=== PATIENT | male | born 1975 | race Caucasian/White ===

== ENCOUNTER 2021-10-22 13:11 | Emergency (ER) | payer OTHER, SELFPAY ==
[2021-10-22 13:13] VITALS: BP 119/92; PULSE 113; RESP 18; TEMP 36.3; O2SAT 97
[2021-10-22 13:48] LABS: Basophils Absolute Auto 0.1 K/mm3 (0.0-0.1); Basophils Percent Auto 0.6 % (0.2-1.2); Eosinophils Percent Auto 0.2 % (0-4.4); Hematocrit 42.2 % (42.0-52.0); Immature Granulocyte Absolute 0.07 K/mm3 (0.00-0.031); Immature Granulocyte Percent A 0.7 % (0-0.5); Lymphocytes Absolute Auto 1.51 K/mm3 (0.9-3.2); Mean Corpuscular HGB Conc 33.2 g/dl (32-36); Mean Corpuscular Hemoglobin 31.5 pg (26-34); Mean Corpuscular Volume 94.8 fl (80-100); Mean Platelet Volume 9.1 fl (7.4-10.4); Monocytes Absolute Auto 0.9 K/mm3 (0.1-0.6); Monocytes Percent Auto 8.4 % (2.6-8.5); Neutrophils Absolute Auto 7.6 K/mm3 (1.3-6.7); Neutrophils Percent Auto 75.1 % (45.5-73.1); Platelet Count Result 183 k/mm3 (150-375); Red Blood Count 4.45 M/mm3 (4.6-6.20); Red Cell Distribution Width 12.6 % (11.5-14.5); White Blood Count 10.1 K/mm3 (4.5-10.0)
[2021-10-22 13:59] LABS: Alanine Aminotransferase 36 U/L (4-50); Albumin Level 4.7 g/dL (3.5-5.1); Alkaline Phosphatase 80 U/L (38-126); Anion Gap 12 mmol/L (8-16); Aspartate Amino Transferase 44 U/L (17-59); Bilirubin,Total 0.8 mg/dL (0.2-1.3); Blood Urea Nitrogen 22 mg/dL (9-20); Carbon Dioxide 21 mmol/L (22-30); Chloride 103 mmol/L (98-107); Estimated CRCL calculation 94 ml/min; Estimated Glomerular Filt Rate > 60; Glucose 112 mg/dL (65-110); Lipase 111 U/L (23-300); Potassium 3.8 mmol/L (3.4-5.0); Sodium 136 mmol/L (137-145)
[2021-10-22] MEDS: SODIUM CHLORIDE 0.9% IV 1,000 ML 999 ML IV CONT (14:45)
--- NOTE | 2021-10-22 15:04 | ED.NAVMDI ---
HPI - Nausea/Vomiting/Diarrhea General Chief complaint: Nausea/Vomiting/Diarrhea Stated complaint: vomiting Time Seen by Provider: 10/22/21 14:35 Source: patient History of Present Illness HPI Narrative: Patient presents with nausea vomiting diarrhea and abdominal pain. Patient reports he recently returned from a trip from [facility]?n did well in [facility]?n when he returned to the [place] he developed nausea vomiting and diarrhea. Denies any blood or bile or melena. His abdominal pain is diffuse crampy constant no radiation no clear aggravating or alleviating factors. Reports subjective chills. He thinks maybe he has food poisoning. Related Data Allergies Allergy/AdvReac Type Severity Reaction Status Date / Time No Known Allergies Allergy Verified 10/04/21 09:05 Review of Systems Review of Systems: CONSTITUTIONAL: Subjective chills EYES: Denies visual changes, redness, or discharge. ENT: Denies rhinorrhea, congestion, sore throat, or otalgia. CARDIOVASCULAR: Denies chest pain, palpitations, or edema. RESPIRATORY: Denies cough or dyspnea. GASTROINTESTINAL: Diffuse abdominal pain with nausea vomiting diarrhea GENITOURINARY: Denies dysuria or hematuria. SKIN: Denies rash or itching. MUSCULOSKELETAL: Denies back pain, joint pain, or myalgia. NEUROLOGIC: Denies headache, numbness, dizziness, or weakness. PSYCHIATRIC: Denies anxiety or depression. All systems reviewed & are unremarkable except as noted in HPI and below PMFSH Social History Social History Smoking status: Never smoker Alcohol intake: current Substance use: never Exam Narrative: GENERAL: Well-appearing, well-nourished, and in no acute distress. HEAD: Normocephalic, atraumatic. EYES: PERRLA and EOMI. ENT: Nares clear, no rhinorrhea or epistaxis. Mucous membranes moist. NECK: Supple. No masses. No JVD ABDOMEN: Minimal pain with deep palpation soft, nondistended, normal active bowel sounds. EXTREMITIES: Normal range of motion. No edema. SKIN: Warm, dry, no rash. NEURO: No focal deficits. Alert and oriented x3. PSYCH: Normal mood and affect. Course Reevaluation(s) Reevaluation #1: Patient reports feeling much improved Date: 10/22/21 Time: 16:45 Vital Signs Vital signs: Vital Signs Temperature 36.3 C L 10/22/21 13:13 Pulse Rate 113 H 10/22/21 13:13 Respiratory Rate 18 10/22/21 13:13 Blood Pressure 119/92 H 10/22/21 13:13 Pulse Oximetry 97 10/22/21 13:13 Temperature 36.3 C L 10/22/21 13:13 Pulse Rate 78 10/22/21 16:16 Respiratory Rate 16 10/22/21 16:16 Blood Pressure 122/68 10/22/21 16:16 Pulse Oximetry 99 10/22/21 16:16 MDM - Nausea/Vomiting/Diarrhea MDM Narrative Medical decision making narrative: H&P as above, vs initially with tachycardia improved with fluids, pt looks clinically well, exam with nonacute abdomen, labs clinically unremarkable, additional labs/img considered, symptomatic relief available as needed, on reevaluation pt continues to looks clinically well. Suspect traveler's diarrhea versus foodborne illness versus viral process, dns severe sepsis, severe dehydration, appendicitis, perforation, bowel obstruction. plan to tx/monitor as op w/ pcm f/u findings/plan discussed with pt, pt agree/comfortable with plan, return precautions given Lab Data Result diagrams: 10/22/21 13:41 10/22/21 13:41 Labs: Lab Results 10/22/21 10/22/21 10/22/21 Range/Units 13:41 13:41 15:36 WBC 10.1 H (4.5-10.0) K/mm3 RBC 4.45 L (4.6-6.20) M/mm3 Hgb 14.0 (14.0-18.0) g/dL Hct 42.2 (42.0-52.0) % MCV 94.8 (80-100) fl MCH 31.5 (26-34) pg MCHC 33.2 (32-36) g/dl RDW 12.6 (11.5-14.5) % Plt Count 183 (150-375) k/mm3 MPV 9.1 (7.4-10.4) fl Immature Gran % (Auto) 0.7 H (0-0.5) % Neut % (Auto) 75.1 H (45.5-73.1) % Lymph % (Auto) 15.0 L (18.3-44.2) % [place] % (Auto) 8.4 (2.6-8.5) % Eos % (A
[2021-10-22 15:53] LABS: Add Urine Microscopic? YES; Appearance Urine Cloudy (Clear); Bilirubin Urine Negative (Negative); Blood Urine Negative (Negative); Color Urine Amber (Yellow); Glucose Urine UA Negative (Negative); Ketones Urine Negative (Negative); Leukocyte Esterase Ur Negative LEU/UL (Negative); Mucus Urine Heavy /lpf; Nitrate Urine Negative (Negative); Protein Urine 1+ mg/dL (Negative); Squamous Epithelial Cell Urine Rare /hpf (Few); Urobilinogen Urine Negative mg/dL (<2.0); WBC Urine 0-3 /hpf
[2021-10-22 15:55] LABS: Specific Grav Ur 1.034 (1.001-1.035)
[2021-10-22] MEDS: DICYCLOMINE HCL 10 MG CAPSULE 20 MG PO (16:11)
[2021-10-22 16:16] VITALS: BP 122/68; PULSE 78; RESP 16; O2SAT 99
== END 2021-10-22 16:54 | disposition home or self-care (01) ==
PROVIDERS: General Practice; Emergency Provider Emergency Medicine; PCP Internal Medicine
DX: R11.2 Nausea with vomiting, unspecified (principal); R19.7 Diarrhea, unspecified; R10.9 Unspecified abdominal pain
CPT/HCPCS: 36415; 80053; 81001; 83690; 85025; 96360; 99283; A9270; J7030

== ENCOUNTER 2023-04-12 00:23 | Day surgery (SDC) | payer OTHER, SELFPAY ==
[2023-04-03 10:49] VITALS: BMI 31.8
--- NOTE | 2023-04-11 13:46 | WPDANESEPPF ---
Anes - Initial Pre Proc Eval Procedure: Operation Date: 04/12/23 12:30 Proposed Procedures p Esophagogastroduodenoscopy & Screening Colonoscopy - Eduardo Berumen MD Date/Time: 04/11/23 13:46 Surgeon: Eduardo Berumen MD Pre Op Diagnosis: abdominal pain, neoplasm screening Patient Data Age: 47 Gender: M Height: 1.84 m Weight: 108 kg Allergies Allergy/AdvReac Type Severity Reaction Status Date / Time No Known Allergies Allergy Verified 04/12/23 11:17 Home Medications Medication Instructions Recorded Confirmed Type famotidine 20 mg tablet 20 mg PO DAILY 04/03/23 04/03/23 History pantoprazole 40 mg tablet,delayed 40 mg PO DAILY 04/03/23 04/03/23 History release sucralfate 1 gram tablet 1 g PO DAILY 04/03/23 04/03/23 History Patient hx anesthesia problems: none Family hx anesthesia problems: none Results Review: All pre-operative results and documents have been reviewed as part of the pre-operative evaluation. [facility] Past Medical History Medical History (Updated 04/11/23 @ 15:53 by Eduardo Berumen MD) GERD (gastroesophageal reflux disease) Social History Social History Smoking status: Never smoker Tobacco type: cigars Alcohol intake: current Substance use: never Living arrangements: with family Spiritual care concerns: No Anes - Eval Final PreProcedure Day of Procedure 04/11/23 13:46 Patient weight: obese Heart: regular rate and rhythm Lungs: clear to auscultation Airway: Mallampati scale class II Neurological: alert and oriented Last oral intake: >/= 8 hours ASA classification: II Emergent: no Anesthetic plan: proceed Anesthesia type and monitoring: general GIVS and standard monitoring Results Review: All pre-operative results and documents have been reviewed as part of the pre-operative evaluation. Informed Consent: The patient's anesthetic plan and its attendant risks and benefits were discussed with the patient/family/POA. Questions were solicited and answers provided to the satisfaction of the patient/family/POA.
--- NOTE | 2023-04-11 15:52 | PM.HPGS ---
History of Present Illness History of Present Illness Consent: Risks, benefits, and alternatives have been discussed and questions answered. Patient agrees to proceed with procedure. Chief complaint: abdominal pain, neoplasm screening Narrative: Jos Myers is a 47 year old male who was referred for investigation of persistent stomach problems. He states several years ago he had an EGD to investigate similar symptoms in that was negative. More recently however his symptoms have gotten worse. Among other things he states that he feels full as though he needs to belch but cannot make himself belch. When he eats a meal he cannot complete a normal size meal because he gets very uncomfortable distended and has gas cramps. At that time he also will hear a lot of rumbling in his stomach. He gets cramping in his lower abdomen on both the right and left sides. His bowel movements are normal. He is also due for colon cancer screening. Two weeks ago he had a CT scan of the abdomen to investigate his symptoms and he states that he has not yet heard the results of that from his primary care provider. Review of Systems Review of Systems: All systems reviewed & are unremarkable except as noted in HPI and below PMFSH Past Medical History Medical History GERD (gastroesophageal reflux disease) Social History Social History Smoking status: Never smoker Tobacco type: cigars Alcohol intake: current Substance use: never Living arrangements: with family Spiritual care concerns: No Meds Home Medications and Allergies Home Medications Medication Instructions Recorded Confirmed Type famotidine 20 mg tablet 20 mg PO DAILY 04/03/23 04/03/23 History pantoprazole 40 mg tablet,delayed 40 mg PO DAILY 04/03/23 04/03/23 History release sucralfate 1 gram tablet 1 g PO DAILY 04/03/23 04/03/23 History Allergies Allergy/AdvReac Type Severity Reaction Status Date / Time No Known Allergies Allergy Verified 04/12/23 11:17 Exam Const: General: alert Orientation/consciousness: patient oriented x3 Resp: Auscultation: clear to auscultation bilaterally Cardio: Rhythm: regular rhythm GI: GI Palp: Yes Soft to palpation and No Tenderness to palpation present (GI) Neuro: General: patient oriented x3 Assessment and Plan Assessment and plan (1) Epigastric pain: Code(s): R10.13 - Epigastric pain Status: Acute Assessment and Plan: EGD with possible biopsy or dilatation or cautery. (2) Colon cancer screening: Code(s): Z12.11 - Encounter for screening for malignant neoplasm of colon Status: Acute Assessment and Plan: Colonoscopy with possible biopsy or polypectomy or cautery or injection of substances.
[2023-04-12 11:18] VITALS: BP 139/89; PULSE 83; RESP 18; TEMP 36.4; O2SAT 97
[2023-04-12] MEDS: LACTATED RINGERS 1,000 ML 150 ML IV CONT (11:28)
--- NOTE | 2023-04-12 13:25 | SUR.OPER ---
EGD END 1321 COLONOSCOPY START 1328
[2023-04-12 13:49] VITALS: BP 110/70; PULSE 92; RESP 18; O2SAT 97
[2023-04-12 13:59] VITALS: BP 120/80; PULSE 82; RESP 18; O2SAT 98
[2023-04-12 14:09] VITALS: BP 122/82; PULSE 78; RESP 20; O2SAT 98
== END 2023-04-12 14:26 | disposition home or self-care (01) ==
PROVIDERS: PCP Internal Medicine; Visit Provider Internal Medicine Gastroenterology
PROC: 0DJ08ZZ Inspection of Upper Intestinal Tract, Via Natural or Artificial Opening Endoscopic (ICD-10-PCS; CPT 43235; principal; 2023-04-12 12:30)
DX: Z12.11 Encounter for screening for malignant neoplasm of colon (principal); K57.30 Diverticulosis of large intestine without perforation or abscess without bleeding; K64.8 Other hemorrhoids; K63.5 Polyp of colon; K21.9 Gastro-esophageal reflux disease without esophagitis; E66.9 Obesity, unspecified; Z68.30 Body mass index [BMI] 30.0-30.9, adult
CPT/HCPCS: 45385; 43239; 88305; J2704; J7120

== ENCOUNTER 2024-08-19 12:48 | Outpatient (CLI) | payer OTHER, SELFPAY ==
--- NOTE | ~2024-08-19 | MR_ITS ---
EXAMINATION: MR foot RT wo con DATE: 08/19/2024 13:17 INDICATION: Sesamoid fracture at the right forefoot TECHNIQUE: Magnetic resonance imaging (MRI) of the right fore/mid foot was performed without intraven ous contrast. Sequences included sagittal T1-weighted FSE, sagittal fluid sensitive FSE STIR, coronal PD-weighted FS FSE, coronal T1-weighted FSE, axial PD-weighted FS FSE, and axial PD-weighted FSE. COMPARISON: None FINDINGS: Bone alignment is normal. No fracture or pathologic marrow replacing process. Specifically no fractur e of the sesamoid bones plantar to the head of the first metatarsal. Mild osteoarthritis at the first metatarsophalangeal joint including at the articulation with the first metatarsal sesamoids with mil d nonuniform joint space narrowing and tiny marginal osteophytes. There is a small focus of degenerat ravinder subarticular edema-like signal change at the central aspect the head of the first metatarsal. Mil d polyarticular osteoarthritis is also seen at several of the tarsal metatarsal and interphalangeal j oints. There is an additional tiny focus of subarticular and edema-like signal change at the head of the fifth proximal phalanx. The Lisfranc ligament complex as well as the collateral ligament complex at the metatarsophalangeal and interphalangeal joints are normal. The visualized portions of the flex or and extensor tendons are normal and physiologic amount fluid in the joint space. No tenosynovitis, bursitis or other abnormal fluid collections. IMPRESSION: 1. Mild polyarticular osteoarthritis in the mid and forefoot including at the first metatarsophalange al joint and at the articulation of the first metatarsal with the otherwise normal sesamoid bones. Reviewed, dictated and finalized at location B. INTERNAL MEDICINE IMPRESSION: 1. Mild polyarticular osteoarthritis in the mid and forefoot including at the f irst metatarsophalangeal joint and at the articulation of the first metatarsal with the otherwise normal sesamoid bones.
== END 2024-08-19 12:49 | disposition home or self-care (01) ==
PROVIDERS: PCP Internal Medicine; Visit Provider Podiatrist Foot & Ankle Surgery
DX: M19.071 Primary osteoarthritis, right ankle and foot (principal)
CPT/HCPCS: 73718

== ENCOUNTER 2025-04-10 23:54 | Emergency (ER) | payer OTHER, SELFPAY ==
--- NOTE | ~2025-04-10 | CT_ITS ---
Clinical Indication: Chest pain CT Scan of the Chest, Abdomen, and Pelvis with Contrast: Technique: Contiguous sections were acquired throughout the chest, abdomen, and pelvis after intravenous administration of 100 cc of Omnipaque 350. Dose reduction technique was used on this scan by utilizing automated exposure control and iterative reconstruction technique. The dose-length product (DLP) was 1199.69 mGy-cm. Findings: There is no evidence of any significant mediastinal, hilar or axillary lymphadenopathy. The mediastinal soft tissues appear normal. No large central pulmonary embolus seen. No aortic aneurysm or dissection. There is no evidence of pleural or pericardial effusion. 2 adjacent 5 mm nodules are present along the right minor fissure (axial image 74). The liver, spleen, pancreas, gallbladder, adrenals and kidneys are within normal limits. No evidence of aortic aneurysm or dissection. No lymphadenopathy. No bowel obstruction or bowel wall thickening. There is no evidence to suggest acute appendicitis. Urinary bladder is unremarkable. No pelvic mass seen. No ascites. Impression: No acute abnormality. 2 adjacent 5 mm nodules along the right minor fissure. Consider annual follow-up exam for a high-risk patient. Reviewed, dictated and finalized at [facility]. Impression: No acute abnormality. 2 adjacent 5 mm nodules along the right minor fissure. Consider annual follow-u p exam for a high-risk patient.
--- NOTE | ~2025-04-10 | XR_ITS ---
Clinical Indication: Chest pain PA and lateral views of the chest: Comparison: None Findings: The lungs are clear, without evidence of focal consolidation or pleural effusion. Cardiomediastinal silhouette is within normal limits. Bones and soft tissues are unremarkable. Impression: Normal chest. Reviewed, dictated and finalized at location . Impression: Normal chest.
[2025-04-10 23:59] VITALS: BP 170/111; PULSE 99; RESP 22; TEMP 37; O2SAT 97
--- NOTE | 2025-04-11 | ECG_ITS ---
Test Date: 2025-04-11 00:06:50 Measurements Intervals [place] Rate: 91 P: 11 MS: 175 QRS: 34 QRSD: 110 T: 13 QT: 366 QTc: 451 Interpretive Statements SINUS RHYTHM BORDERLINE R WAVE PROGRESSION, ANTERIOR LEADS BORDERLINE ST-T WAVE ABNORMALITY- INF/HIGH LAT LEADS BASELINE ARTIFACT- I, II, III, AVR, AVL, AVF BORDERLINE ECG No previous ECG available for comparison Electronically Signed On 04-11-2025 06:33:50 CDT by Raphael Acosta D.O.
[2025-04-11 00:15] LABS: Hematocrit 48.7 % (42.0-52.0); Hemoglobin 16.7 g/dL (14.0-18.0); Immature Granulocyte Percent A 0.5 % (0-0.5); Lymphocytes Absolute Auto 2.62 K/mm3 (0.9-3.2); Mean Corpuscular HGB Conc 34.3 g/dl (32-36); Mean Corpuscular Hemoglobin 31.7 pg (26-34); Mean Corpuscular Volume 92.4 fl (80-100); Nucleated Red Blood Cells Absolute Auto 0.000 K/mm3 (0.0-0.012); Nucleated Red Blood Cells Perc 0.0 % (0.0-0.2); Platelet Count Result 212 k/mm3 (150-375); Red Blood Count 5.27 M/mm3 (4.6-6.20); White Blood Count 11.0 K/mm3 (4.5-10.0)
--- NOTE | 2025-04-11 00:22 | ED.CHESTPAIN ---
HPI - Chest Pain General Chief Complaint: Chest Pain <Arminda Granger PA-C - Last Filed: 04/11/25 02:34> Stated Complaint: chest pain <Arminda Granger PA-C - Last Filed: 04/11/25 02:34> Time Seen by Provider: 04/10/25 23:57 <Arminda Granger PA-C - Last Filed: 04/11/25 02:34> History of Present Illness HPI narrative: 49-year-old male with history of hypertension and GERD presents to emergency department for chest pain that started 2 hours prior to arrival. Patient states he was eating a ham and cheese sandwich and cheese nachos with jalapenos. Shortly after eating he started developing pain that started in his left shoulder and radiated to his left chest into his throat. He describes the pain as a tightness and burning sensation. He states the pain is been constant since. He cannot identify any aggravating or alleviating factors. He states it feels like he cannot take a full deep breath. He denies exertional symptoms, lower extremity edema, hemoptysis, cough or congestion, history of VTE, recent surgeries or hospitalizations. Denies prior cardiac history. He believes is status a history of a heart attack. He denies smoking. 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 <Arminda Granger PA-C - Last Filed: 04/11/25 02:34> Related Data Home Medications: Home Medications ?Medication ?Instructions ?Recorded ?Confirmed ?Last Taken ?Type famotidine 20 mg tablet 20 mg PO DAILY 04/03/23 03/07/24 Unknown History pantoprazole 40 mg tablet,delayed 40 mg PO DAILY 04/03/23 03/07/24 Unknown History release lactobacillus combination no.9 4 4,000 mmu cells PO DAILY 01/18/24 03/07/24 Unknown History billion cell capsule (Adult 50 Plus Probiotic) simethicone 125 mg capsule (Gas-X 125 mg PO DAILY PRN 01/18/24 03/07/24 Unknown History Extra Strength) <PAUL Omer Last Filed: 04/11/25 02:34> Allergies/Adverse Reactions: Allergies Allergy/AdvReac Type Severity Reaction Status Date / Time No Known Allergies Allergy Verified 04/11/25 00:04 <Arminda Granger PA-C - Last Filed: 04/11/25 02:34> Review of Systems Review of Systems: All systems reviewed & are unremarkable except as noted in HPI and below <Arminda Granger PA-C - Last Filed: 04/11/25 02:34> PMFSH Past Medical History Medical History: Medical History Irritable bowel syndrome with diarrhea Bilateral lower abdominal cramping Loose stools Bloating symptom GERD (gastroesophageal reflux disease) <Arminda Granger PA-C - Last Filed: 04/11/25 02:34> Social History Social History: Social History Smoking status: Never smoker Tobacco type: cigars Alcohol intake: current Substance use: never Living arrangements: with family Spiritual care concerns: No <Arminda Granger PA-C - Last Filed: 04/11/25 02:34> Exam Narrative: GENERAL: Well-appearing, well-nourished, and in no acute distress. HEAD: Normocephalic, atraumatic. EYES: EOMI. ENT: Nares clear, no rhinorrhea or epistaxis. Mucous membranes moist. NECK: Supple. CHEST: Clear to auscultation. No respiratory distress. HEART: Regular rate and rhythm. No murmur heard. Normal peripheral pulses. ABDOMEN: Soft, nontender, nondistended, normal active bowel sounds. EXTREMITIES: Normal range of motion. No edema. SKIN: Warm, dry, no rash. NEURO: No focal deficits. Alert and oriented x3 <Arminda Granger PA-C - Last Filed: 04/11/25 02:34> Course PHOTOGRAMMETRIST/PA Physician Supervision This visit was performed by both a physician and an APC. For this patient encounter, I reviewed the PHOTOGRAMMETRIST or PA documentation, treatment plan, and medical decision making and had [id number] time with this patient. I performed all aspects of the MDM as documented. <Yoseph Briseno MD - Last Filed: 04/11/25 04:18> Vital Signs Vital signs: Vital Signs Temperature 98.6 F 04/10/25 23:59 Pulse Rate 99 04/10/25 23:59 Respiratory Rate 22 H 04/10/25 23:59 Blood Pressure 170/111 H 04/10/25 23:59 Pulse Oximetry 97 04/10/25 23:59 Oxygen Delivery Autopap 04/10/25 23:59 Temperature 98.6 F 04/10/25 23:59 Pulse Rate 95 04/11/25 03:14 Respiratory Rate 16 04/11/25 03:14 Blood Pressure 147/92 H 04/11/25 03:14 Pulse Oximetry 98 04/11/25 03:14 Oxygen Delivery Autopap 04/10/25 23:59 <Arminda Granger PA-C - Last Filed: 04/11/25 02:34> Vital Signs Temperature 98.6 F 04/10/25 23:59 Pulse Rate 99 04/10/25 23:59 Respiratory Rate 22 H 04/10/25 23:59 Blood Pressure 170/111 H 04/10/25 23:59 Pulse Oximetry 97 04/10/25 23:59 Oxygen Delivery Autopap 04/10/25 23:59 Temperature 98.6 F 04/10/25 23:59 Pulse Rate 95 04/11/25 03:14 Respiratory Rate 16 04/11/25 03:14 Blood Pressure 147/92 H 04/11/25 03:14 Pulse Oximetry 98 04/11/25 03:14 Oxygen Delivery Autopap 04/10/25 23:59 <Yoseph Briseno MD - Last Filed: 04/11/25 04:18> MDM - Chest Pain MDM Narrative Medical decision making narrative: 49-year-old male with history of hypertension and GERD presents emergency department for chest pain that started 2 hours prior to arrival. See HPI for further history. Triage vitals with hypertension and tachypnea of 22. Patient is afebrile and nontoxic appearing. Exam significant for the above. Aspirin administered. Will also provide GI cocktail and pepcid. EKG shows normal sinus rhythm with a rate of 91 ppm, normal CO interval, normal QRS duration, normal QTC, ST elevations or depressions. Initial troponin is undetectable. CBC with leukocytosis of 11. Chemistries are unremarkable. D-dimer is within normal limits, wells score is low risk. I was notified by nursing staff the patient is reporting worsening pain despite Pepcid and GI cocktail. Patient re-evaluated does appear acutely uncomfortable. States his pain is now radiating into his left jaw and is now pleuritic. Repeat EKG performed which shows no acute changes. Will add on CTA chest, abdomen and pelvis for further evaluation. Morphine and Toradol provided for pain control. Pt reports no improvement after morphine but does have improvement after Toradol. States it is much easier to breathe and he is now resting comfortably. Pending CTA chest/abdomen/pelvis at time of sign-out to Dr. Briseno. <Arminda Granger PA-C - Last Filed: 04/11/25 02:34> 49-year-old male with history of hypertension and GERD presents emergency department for chest pain that started 2 hours prior to arrival. See HPI for further history. Triage vitals with hypertension and tachypnea of 22. Patient is afebrile and nontoxic appearing. Exam significant for the above. Aspirin administered. Will also provide GI cocktail and pepcid. EKG shows normal sinus rhythm with a rate of 91 ppm, normal CO interval, normal QRS duration, normal QTC, ST elevations or depressions. Initial troponin is undetectable. 3 hour troponin also undetectable. CBC with leukocytosis of 11. Chemistries are unremarkable. D-dimer is within normal limits, wells score is low risk. I was notified by nursing staff the patient is reporting worsening pain despite Pepcid and GI cocktail. Patient re-evaluated does appear acutely uncomfortable. States his pain is now radiating into his left jaw and is now pleuritic. Repeat EKG performed which shows no acute changes. Will add on CTA chest, abdomen and pelvis for further evaluation. Morphine and Toradol provided for pain control. Pt reports no improvement after morphine but does have improvement after Toradol. States it is much easier to breathe and he is now resting comfortably. Pending CTA chest/abdomen/pelvis at time of sign-out to Dr. Briseno. Finn: patient was signed out to me pending CTA results. CT was obtained revealing no acute process, no evidence of aortic aneurysm or dissection, no acute cardiopulmonary process. Patient was informed of these findings at bedside. He was found to be resting comfortably asleep in bed. States that his symptoms have significantly improved after the Toradol. Instructed that he will eat follow-up with his primary care physician within the next 3-5 days and provided with strict return precautions instructed return to the ED if any new or worsening symptoms develop. Discharged home in stable condition. <Yoseph Briseno MD - Last Filed: 04/11/25 04:18> Lab Data Result diagrams: 04/11/25 00:07 04/11/25 00:08 <Arminda Granger PA-C - Last Filed: 04/11/25 02:34> Labs: Lab Results 04/11/25 04/11/25 04/11/25 Range/Units 00:07 00:08 02:55 WBC 11.0 H (4.5-10.0) K/mm3 RBC 5.27 (4.6-6.20) M/mm3 Hgb 16.7 (14.0-18.0) g/dL Hct 48.7 (42.0-52.0) % MCV 92.4 (80-100) fl MCH 31.7 (26-34) pg MCHC 34.3 (32-36) g/dl RDW 12.3 (11.5-14.5) % Plt Count 212 (150-375) k/mm3 MPV 9.8 (7.4-10.4) fl Immature Gran % (Auto) 0.5 (0-0.5) % Neut % (Auto) 64.5 (45.5-73.1) % Lymph % (Auto) 23.8 (18.3-44.2) % [place]imes % (Auto) 9.6 H (2.6-8.5) % Eos % (Auto) 0.8 (0-4.4) % Baso % (Auto) 0.8 (0.2-1.2) % Lymph # (Auto) 2.62 (0.9-3.2) K/mm3 Grimes # (Auto) 1.1 H (0.1-0.6) K/mm3 Eos # (Auto) 0.1 (0-0.3) K/mm3 Baso # (Auto) 0.1 (0.0-0.1) K/mm3 Abs Immat Gran (auto) 0.05 H (0.00-0.031) K/mm3 Absolute Neuts (auto) 7.1 H (1.3-6.7) K/mm3 Absolute Nucleated RBC 0.000 (0.0-0.012) K/mm3 Nucleated RBC % 0.0 (0.0-0.2) % PT 13.4 (11.1-14.7) Seconds INR 1.0 APTT 25.7 (22.3-36.8) Seconds D-Dimer < 0.27 (<0.48) ug/mL Sodium 139 (137-145) mmol/L Potassium 3.5 (3.4-5.0) mmol/L Chloride 102 (98-107) mmol/L Carbon Dioxide 28 (22-30) mmol/L Anion Gap 9 (4-12) mmol/L BUN 15 D (9-20) mg/dL Creatinine 0.92 (0.7-1.3) mg/dL Estim Creat Clear Calc 104 ml/min Estimated GFR > 60 (59 - ) Glucose 121 H (65-110) mg/dL Calcium 9.7 (8.4-10.2) mg/dL Total Bilirubin 0.8 (0.2-1.3) mg/dL AST 41 (17-59) U/L ALT 32 (6-50) U/L Alkaline Phosphatase 48 (38-126) U/L Troponin I < 0.012 < 0.012 (0.000-0.034) ng/mL Total Protein 7.9 (6.3-8.2) g/dL Albumin 4.5 (3.5-5.1) g/dL Lipase 101 (23-300) U/L <Arminda Granger PA-C - Last Filed: 04/11/25 02:34> Lab Results 04/11/25 04/11/25 04/11/25 Range/Units 00:07 00:08 02:55 WBC 11.0 H (4.5-10.0) K/mm3 RBC 5.27 (4.6-6.20) M/mm3 Hgb 16.7 (14.0-18.0) g/dL Hct 48.7 (42.0-52.0) % MCV 92.4 (80-100) fl MCH 31.7 (26-34) pg MCHC 34.3 (32-36) g/dl RDW 12.3 (11.5-14.5) % Plt Count 212 (150-375) k/mm3 MPV 9.8 (7.4-10.4) fl Immature Gran % (Auto) 0.5 (0-0.5) % Neut % (Auto) 64.5 (45.5-73.1) % Lymph % (Auto) 23.8 (18.3-44.2) % Grimes % (Auto) 9.6 H (2.6-8.5) % Eos % (Auto) 0.8 (0-4.4) % Baso % (Auto) 0.8 (0.2-1.2) % Lymph # (Auto) 2.62 (0.9-3.2) K/mm3 Grimes # (Auto) 1.1 H (0.1-0.6) K/mm3 Eos # (Auto) 0.1 (0-0.3) K/mm3 Baso # (Auto) 0.1 (0.0-0.1) K/mm3 Abs Immat Gran (auto) 0.05 H (0.00-0.031) K/mm3 Absolute Neuts (auto) 7.1 H (1.3-6.7) K/mm3 Absolute Nucleated RBC 0.000 (0.0-0.012) K/mm3 Nucleated RBC % 0.0 (0.0-0.2) % PT 13.4 (11.1-14.7) Seconds INR 1.0 APTT 25.7 (22.3-36.8) Seconds D-Dimer < 0.27 (<0.48) ug/mL Sodium 139 (137-145) mmol/L Potassium 3.5 (3.4-5.0) mmol/L Chloride 102 (98-107) mmol/L Carbon Dioxide 28 (22-30) mmol/L Anion Gap 9 (4-12) mmol/L BUN 15 D (9-20) mg/dL Creatinine 0.92 (0.7-1.3) mg/dL Estim Creat Clear Calc 104 ml/min Estimated GFR > 60 (59 - ) Glucose 121 H (65-110) mg/dL Calcium 9.7 (8.4-10.2) mg/dL Total Bilirubin 0.8 (0.2-1.3) mg/dL AST 41 (17-59) U/L ALT 32 (6-50) U/L Alkaline Phosphatase 48 (38-126) U/L Troponin I < 0.012 < 0.012 (0.000-0.034) ng/mL Total Protein 7.9 (6.3-8.2) g/dL Albumin 4.5 (3.5-5.1) g/dL Lipase 101 (23-300) U/L <Yoseph Briseno MD - Last Filed: 04/11/25 04:18> Discharge Plan Discharge Clinical Impression: Chest pain, pleuritic <Arminda Granger PA-C - Last Filed: 04/11/25 02:34> Patient Disposition: Home <Arminda Granger PA-C - Last Filed: 04/11/25 02:34> Condition: Improved <Arminda Granger PA-C - Last Filed: 04/11/25 02:34> Instructions: Antibiotic Form, Chest Pain (ED), Pleurisy (ED) <Arminda Granger PA-C - Last Filed: 04/11/25 02:34> Additional Instructions: Please follow-up with your family doctor in the next 3-5 days. Return to emergency department for new or worsening symptoms develop. <Arminda Granger PA-C - Last Filed: 04/11/25 02:34> Patient Language: Romanian <Arminda Granger PA-C - Last Filed: 04/11/25 02:34> Prescriptions: No Action Adult 50 Plus Probiotic 4 billion cell capsule 4,000 mmu cells PO DAILY Rx Instructions: administer with a meal simethicone [Gas-X Extra Strength] 125 mg capsule 125 mg PO DAILY PRN dicyclomine 20 mg tablet 20 mg PO TID PRN (Reason: abdominal pain) Qty: 90 0RF amitriptyline 25 mg tablet 25 mg PO QHS 30 Days Qty: 30 5RF famotidine 20 mg tablet 20 mg PO DAILY pantoprazole 40 mg tablet,delayed release (DR/EC) 40 mg PO DAILY <PAUL Omer Last Filed: 04/11/25 02:34> Follow-up/Referrals: Brooke,MD Fabrizio [Primary Care Provider] - 3 Days <Arminda Granger PA-C - Last Filed: 04/11/25 02:34> Time of Disposition: 04:18 <Arminda Granger PA-C - Last Filed: 04/11/25 02:34> 04:18 <Yoseph Briseno MD - Last Filed: 04/11/25 04:18>
[2025-04-11 00:26] LABS: INR 1.0; Prothrombin Time 13.4 Seconds (11.1-14.7)
[2025-04-11 00:27] LABS: Partial Thromboplastin Time 25.7 Seconds (22.3-36.8)
[2025-04-11] MEDS: ASPIRIN 81 MG CHEWABLE TABLET 324 MG PO (00:29)
[2025-04-11] MEDS: BELLADONNA ALK/PHENOB ELIX 10 ML, MAG HYDROX/ALUMINUM HYD/SIMETH 30 ML, LIDOCAINE 2% VI... PO (00:30)
[2025-04-11 00:33] LABS: Alanine Aminotransferase 32 U/L (6-50); Albumin Level 4.5 g/dL (3.5-5.1); Alkaline Phosphatase 48 U/L (38-126); Anion Gap 9 mmol/L (4-12); Aspartate Amino Transferase 41 U/L (17-59); Bilirubin,Total 0.8 mg/dL (0.2-1.3); Blood Urea Nitrogen 15 mg/dL (9-20); Calcium 9.7 mg/dL (8.4-10.2); Carbon Dioxide 28 mmol/L (22-30); Chloride 102 mmol/L (98-107); Estimated CRCL calculation 104 ml/min; Estimated Glomerular Filt Rate > 60; Glucose 121 mg/dL (65-110); Lipase 101 U/L (23-300); Potassium 3.5 mmol/L (3.4-5.0); Sodium 139 mmol/L (137-145); Total Protein 7.9 g/dL (6.3-8.2)
[2025-04-11] MEDS: FAMOTIDINE 20 MG/2 ML VIAL IV PUSH (00:34)
[2025-04-11 00:44] LABS: Troponin I < 0.012 ng/mL (0.000-0.034)
--- NOTE | 2025-04-11 01:24 | ECG_ITS ---
Test Date: 2025-04-11 01:30:17 Measurements Intervals [place] Rate: 90 P: 2 WA: 183 QRS: 31 QRSD: 93 T: 34 QT: 342 QTc: 420 Interpretive Statements SINUS RHYTHM BORDERLINE R WAVE PROGRESSION, ANTERIOR LEADS NONSPECIFIC T-WAVE ABNORMALITY- INF/HIGH LAT LEADS BASELINE ARTIFACT- I, II, III, AVR, AVL, AVF, V1 BORDERLINE ECG Compared to ECG 04/11/2025 00:06:50 NO SIGNIFICANT CHANGE Electronically Signed On 04-11-2025 06:34:39 CDT by Raphael Acosta D.O.
[2025-04-11] MEDS: MORPHINE SULFATE (*CRX) 4 MG/ML INJ IV PUSH (01:28)
--- NOTE | 2025-04-11 01:47 | PC.NURSE ---
pt taken to CT on stretcher
[2025-04-11] MEDS: KETOROLAC 15 MG/ML VIAL (*BKC) IV PUSH (01:58)
[2025-04-11] MEDS: PANTOPRAZOLE SODIUM IV 40 MG VIAL IV PUSH (02:18)
[2025-04-11] MEDS: diazePAM INJ (*CRX) 10 MG/2 ML SYRINGE 5 MG IV PUSH (02:27)
--- NOTE | 2025-04-11 02:41 | ECG_ITS ---
Test Date: 2025-04-11 02:55:41 Measurements Intervals [place] Rate: 97 P: 3 NM: 182 QRS: 29 QRSD: 106 T: 55 QT: 350 QTc: 447 Interpretive Statements SINUS RHYTHM BORDERLINE R WAVE PROGRESSION, ANTERIOR LEADS NONSPECIFIC T-WAVE ABNORMALITY- HIGH LATERAL LEADS BORDERLINE ECG Compared to ECG 04/11/2025 01:30:17 No significant changes Electronically Signed On 04-11-2025 06:35:11 CDT by Raphael Acosta D.O.
[2025-04-11 03:14] VITALS: BP 147/92; PULSE 95; RESP 16; O2SAT 98
--- NOTE | 2025-04-11 03:15 | PC.NURSE ---
pt states chest pain improving, now at a 5/10.
[2025-04-11 03:23] LABS: Troponin I < 0.012 ng/mL (0.000-0.034)
[2025-04-11 04:27] VITALS: BP 138/85; PULSE 96; RESP 18; O2SAT 97
== END 2025-04-11 04:33 | disposition home or self-care (01) ==
PROVIDERS: Physician Assistant; Emergency Provider Emergency Medicine; PCP Internal Medicine
DX: R07.81 Pleurodynia (principal); I10 Essential (primary) hypertension; K21.9 Gastro-esophageal reflux disease without esophagitis; K58.0 Irritable bowel syndrome with diarrhea; R94.31 Abnormal electrocardiogram [ECG] [EKG]
CPT/HCPCS: 36415; 71046; 71275; 74174; 80053; 83690; 84484; 85025; 85380; 85610; 85730; 93005; 96374; 96375; 99284; A9270; J1885; J2270; J2470; J3360; Q9967